=== PATIENT | male | born 2005 | race Caucasian/White ===

== ENCOUNTER 2024-08-12 11:58 | Emergency (ER) | payer OTHER, SELFPAY ==
[2024-08-12 13:05] VITALS: BP 131/79; PULSE 113; RESP 18; TEMP 36.8; O2SAT 96; BMI 22.2
--- NOTE | 2024-08-12 14:13 | CRLHL7_ITS ---
For Patients: As a result of the Century Cures Act, medical imaging exams and procedure reports are released immediately into your electronic medical record. You may view this report before your referring provider. If you have questions, please contact your health care provider. Indication: Parotitis. Technique: Contrast-enhanced CT of the neck with multiplanar reconstruction utilizing 76 cc Isovue 370 iodinated contrast. Comparison: None available. Findings: No suspicious mucosal based mass or enhancement. Mild diffuse skin thickening throughout the left face with an 8 mm nodular cutaneous focus (series 4 image 19). Diffuse asymmetric infiltration of the soft tissues throughout the left face and upper neck. Asymmetric enlargement and enhancement of the left parotid gland. No evidence of obstructing sialolith. Mild asymmetric enlargement of multiple left level IIa cervical lymph nodes, for reference a 1.7 cm node (series 3, image 34). Well-circumscribed hypoattenuating focus within the right sublingual space measuring up to 2.9 cm. Normal right parotid and submandibular glands. Unremarkable thyroid. The lung apices are clear. The major vascular structures appear within normal limits. The imaged intracranial structures are unremarkable in appearance. Impression: 1. Mild diffuse skin thickening throughout the left face with an 8 mm nodular cutaneous focus of enhancement (series 4, image 19), suspicious for cellulitis. 2. Diffuse asymmetric infiltration of the soft tissues throughout the left face and upper neck. 3. Asymmetric enhancement and enlargement of the left parotid gland suspicious for secondary sialoadenitis. No obstructing sialolith. 4. Well-circumscribed 2.9 cm hypoattenuating focus within the right sublingual space likely representing a simple ranula. Please note that all CT scans at this facility use dose modulation, iterative reconstruction, and/or weight-based dosing when appropriate to reduce radiation dose to as low as reasonably achievable. Dictated by Gilberto Russo MD @ 08/12/2024 3:38:29 PM (Electronically Signed)
[2024-08-12 14:34] LABS: Basophils Absolute Auto 0.03 K/uL (0.00-0.30); Basophils Percent Auto 0.5 % (0.0-3.0); Eosinophils Absolute Auto 0.24 K/uL (0.00-0.50); Eosinophils Percent Auto 3.8 % (0.0-7.0); Hematocrit 43.5 % (37.0-53.0); Hemoglobin* 14.1 gm/dL (13.5-17.5); Lymphocytes Percent Auto 17.9 % (20-44); Mean Corpuscular HGB Conc 32 gm/dL (32-36); Mean Corpuscular Hemoglobin 30 pg (26-34); Mean Corpuscular Volume 94 fL (80-100); Monocytes Percent Auto 8.8 % (0.0-11.0); Neutrophils Absolute Auto 4.41 K/uL (1.7-7.0); Platelet Count* 201 K/uL (140-440); RDW Coefficient of Variation % 12.4 % (11.5-15.5); Red Blood Count 4.65 m/uL (4.30-5.90); White Blood Count* 6.38 K/uL (4.50-11.00)
[2024-08-12 14:36] LABS: Slide Review Reflex No
--- NOTE | 2024-08-12 14:38 | ED.GENADULT ---
HPI - General Adult General Chief complaint: Ear/Nose/Throat Problem Stated complaint: Facial swelling Time Seen by Provider: 08/12/24 14:09 History of Present Illness HPI narrative: This 19-year-old male comes in with swelling on the left side of his face over the parotid area. He states that this began yesterday. He does not report any fevers or other sign of infection. He states that there is tenderness in this side of his face related to the swelling. Related Data Home Medications ?Medication ?Instructions ?Recorded ?Confirmed methylphenidate HCl 54 mg 54 mg PO DAILY 08/12/24 08/12/24 tablet,extended release 24 hr (Relexxii) paroxetine HCl 30 mg tablet (Paxil) 30 mg PO DAILY 08/12/24 08/12/24 Allergies Allergy/AdvReac Type Severity Reaction Status Date / Time No Known Drug Allergies Allergy Verified 08/12/24 13:08 Review of Systems Status of ROS: Reports: 10 or more systems reviewed and unremarkable except as noted in History and below Narrative: Constitutional: No fevers, no weight gain or loss. Eyes: No discharge. No vision changes. HENT: No congestion, no sore throat, no ear pain. Cardiovascular: No chest pain, no palpitations. Respiratory: No shortness of breath, no wheezes, no cough. Gastrointestinal: No abdominal pain, no vomiting, no diarrhea. Genitourinary: No dysuria, no hematuria. Musculoskeletal: Normal range of motion. Skin: No rashes, no pruritis. Neurological: No dizziness, weakness, sensory change, speech change. Endo/Heme/Allergies: No bruising or bleeding. No polydipsia. Pysch: no suicidality, no anxiety, no insomnia. All other systems reviewed and are negative. PFSH PFS Social History Smoking Status: Never smoker Do you use any of these nicotine containing products: None Second hand tobacco smoke exposure: No How often do you have a drink containing alcohol: never AUDIT-C Alcohol total score: 0 Non-prescribed substance use: denies use service: No Exam Narrative: Exam Narrative: Constitutional: Well-developed, well-nourished, no acute distress. HEENT: Normocephalic, atraumatic. Left side of the face overlying the parotid area show significant swelling. No swelling in the submandibular or submental glans. Oral exam shows a prominence of Stensen's duct on the left side. Neck: Normal range of motion. Nontender. Supple. Heart: Regular. No murmurs. Normal rate. Intact distal pulses. Lungs: Clear to auscultation. No chest discomfort. No wheezes, rhonchi, or rales. Abdomen: Normal bowel sounds. Nontender. No rebound tenderness. Genitalia: Deferred. Back: No midline tenderness. Normal range of motion. Extremities: Normal range of motion. No injury. Skin: Intact. No rash. Warm. No erythema or pallor. Neurologic: No altered sensation. No weakness. Alert and oriented. Psychiatric: No suicidality. No anxiety or depression. No insomnia. Nursing notes and vitals signs are reviewed. Const: Vital Signs, click to edit/add: Vital Signs - 24 hr 08/12/24 13:05 Temperature 98.2 F Pulse Rate [Pulse Oximeter] 113 H Respiratory Rate 18 Blood Pressure [Ri ght Upper Arm] 131/79 Pulse Oximetry 96 Oxygen Delivery Me thod Room Air Course Vital Signs Vital signs: Initial Vital Signs Temperature 98.2 F 08/12/24 13:05 Temperature Source Oral 08/12/24 13:05 Pulse Rate 113 H 08/12/24 13:05 Pulse Rhythm Regular 08/12/24 13:05 Respiratory Rate 18 08/12/24 13:05 Blood Pressure 131/79 08/12/24 13:05 Blood Pressure Mean 96 08/12/24 13:05 Blood Pressure Position Sitting 08/12/24 13:05 Pulse Oximetry 96 08/12/24 13:05 Oxygen Delivery Method Room Air 08/12/24 13:05 Vital Signs Temperature 98.2 F 08/12/24 13:05 Pulse Rate 113 H 08/12/24 13:05 Respiratory Rate 18 08/12/24 13:05 Blood Pressure 131/79 08/12/24 13:05 Pulse Oximetry 96 08/12/24 13:05 Oxygen Delivery Method Room Air 08/12/24 13:05 Temperature 98.2 F 08/12/24 13:05 Pulse Rate 113 H 08/12/24 13:05 Respiratory Rate 18 08/12/24 13:05 Blood Pressure 131/79 08/12/24 13:05 Pulse Oximetry 96 08/12/24 13:05 Oxygen Delivery Method Room Air 08/12/24 13:05 Medical Decision Making MDM Narrative Medical decision making narrative: This patient has a little swelling of his left parotid gland. A CT scan of the soft tissue of the neck with IV contrast is obtained and shows just that without any evidence of sialolithiasis or abscess. The patient has normal vital signs and lab results are reassuring. The patient's father is a primary physician in the [facility] and did already prescribed Augmentin which she has yet to start taking. This seems to be an appropriate treatment along with taking saw our candies to help secreted it and drain the parotid gland. I also recommended that he gently express with his hands and fingers the gland itself along the pathway of the Stensen's duct. A warm compress also may be of benefit. The patient is okay to be discharged home in understands that he should return if worsening symptoms occur. Lab Data Labs: Lab Results 08/12/24 Range/Units 14:26 WBC 6.38 (4.50-11.00) K/uL RBC 4.65 (4.30-5.90) m/uL Hgb 14.1 (13.5-17.5) gm/dL Hct 43.5 (37.0-53.0) % MCV 94 (80-100) fL MCH 30 (26-34) pg MCHC 32 (32-36) gm/dL RDW Coeff of Beata 12.4 (11.5-15.5) % Plt Count 201 (140-440) K/uL Neut % (Auto) 69.0 (42.0-72.0) % Lymph % (Auto) 17.9 L (20-44) % [place] % (Auto) 8.8 (0.0-11.0) % Eos % (Auto) 3.8 (0.0-7.0) % Baso % (Auto) 0.5 (0.0-3.0) % Neut # (Auto) 4.41 (1.7-7.0) K/uL Lymph # (Auto) 1.10 (0.90-2.90) K/uL [place] # (Auto) 0.60 (0.00-0.90) K/UL Eos # (Auto) 0.24 (0.00-0.50) K/uL Baso # (Auto) 0.03 (0.00-0.30) K/uL Abs Immat Gran (auto) 0.00 (0.00-0.30) K/uL Imm/Tot Granulo (auto) 0.0 % Imaging Data CT Soft Tissue Neck: Radiologist's impression: 1. Mild diffuse skin thickening throughout the left face with an 8 mm nodular cutaneous focus of enhancement (series 4, image 19), suspicious for cellulitis. 2. Diffuse asymmetric infiltration of the soft tissues throughout the left face and upper neck. 3. Asymmetric enhancement and enlargement of the left parotid gland suspicious for secondary sialoadenitis. No obstructing sialolith. 4. Well-circumscribed 2.9 cm hypoattenuating focus within the right sublingual space likely representing a simple ranula. Discharge Plan Discharge Clinical Impression: Parotid sialadenitis Patient Disposition: Home, Self-Care Condition: Stable Additional Instructions: Take Augmentin as prescribed. Use sour candies to stimulate secretion of the salivary glands. A warm compress and gentle expression of the gland may also assist in drainage. Follow up with MD return if worsening. Prescriptions: No Action methylphenidate HCl [Relexxii] 54 mg tablet extended release 24hr 54 mg PO DAILY paroxetine HCl [Paxil] 30 mg tablet 30 mg PO DAILY Follow Up/Referrals: Provider,Not a Local [Primary Care Provider] - Stand Alone Forms: [facility] [facility] Info Instructions
== END 2024-08-12 16:53 | disposition home or self-care (01) ==
PROVIDERS: Emergency Provider Emergency Medicine Emergency Medical Services
DX: K11.23 Chronic sialoadenitis (principal)
CPT/HCPCS: 36415; 70491; 85025; 99284; Q9967